=== PATIENT | female | born 1970 | race Hispanic/Latino ===

== ENCOUNTER 2022-04-30 20:59 | Emergency (ER) | payer SELFPAY ==
[~2022-04-30] VITALS: Ht 162.6 cm; Wt 82.0 kg
[2022-04-30] MEDS ORDERED: [UNRECOGNIZED DRUG - OTHER] PO (21:32)
== END 2022-05-01 03:35 | disposition home or self-care (01) ==
LOC: ED 20:59
DX: U07.1 COVID-19 (principal); R10.9 Unspecified abdominal pain; K80.20 Calculus of gallbladder without cholecystitis without obstruction
CPT/HCPCS: 36415; 74177; 76705; 80053; 81001; 83690; 84703; 85025; 87502; 96361; 96376; 99284-25; C9803; J1170; J7030; Q9967; U0003